=== PATIENT | female | born 2000 | race Caucasian/White ===

== ENCOUNTER 2020-03-19 09:58 | Inpatient (IN) | payer BC, MEDICAID ==
[2020-03-20] MEDS ORDERED: ZOLPIDEM TARTRATE 5 MG TABLET PO PRN (17:51)
[2020-03-20] MEDS ORDERED: RINGERS SOLUTION,LACTATED 1,000 ML IV ONE (17:51)
[2020-03-20] MEDS ORDERED: MAG HYDROX/AL HYDROX/SIMETH SUSP 30 ML UDCUP PO PRN (17:51)
[2020-03-20] MEDS ORDERED: ACETAMINOPHEN 325 MG TABLET PO PRN (17:51)
[2020-03-20] MEDS ORDERED: RINGERS SOLUTION,LACTATED 1,000 ML IV PRN (17:51)
[2020-03-20] MEDS ORDERED: DINOPROSTONE 10 MG VAGINAL INSERT.SR PV ONE (17:51)
[2020-03-20] MEDS ORDERED: DINOPROSTONE 10 MG VAGINAL INSERT.SR ONE (18:06)
[2020-03-20 18:30] LABS: APPEARANCE,URINE SLIGHTLY-CLOUDY; BILIRUBIN,URINE NEGATIVE (NEGATIVE); COLOR,URINE YELLOW; GLUCOSE, URINE NEGATIVE (NEGATIVE); KETONES,URINE NEGATIVE (NEGATIVE); LEUKOCYTE ESTERASE,URINE LARGE (NEGATIVE); NITRITE,URINE NEGATIVE (NEGATIVE); PROTEIN,URINE NEGATIVE (NEGATIVE); URINE SPECIFIC GRAVITY 1.008; UROBILINOGEN,URINE NEGATIVE mg/dL (<2.0)
[2020-03-20 18:47] LABS: URINE AMPHETAMINES SCREEN NEGATIVE; URINE BARBITURATES SCREEN NEGATIVE; URINE BENZODIAZEPINES SCREEN NEGATIVE; URINE COCAINE SCREEN NEGATIVE; URINE MARIJUANA (THC) SCREEN NEGATIVE; URINE METHADONE SCREEN NEGATIVE; URINE PHENCYCLIDINE SCREEN NEGATIVE
[2020-03-20 19:06] LABS: ABSOLUTE EOSINOPHILS # (AUTO) 0.1 10^3/uL (0.0-0.6); ABSOLUTE MONOCYTES (AUTO) 0.9 10^3/uL (0.1-1.4); ABSOLUTE NEUT (AUTO) 7.8 10^3/uL (1.7-8.2); BASOPHILS % (AUTO) 0.4 % (0-2); EOSINOPHILS % (AUTO) 1.1 % (0-6); HEMATOCRIT 32.7 % (36.0-47.0); HEMOGLOBIN 11.5 g/dL (12.0-15.5); LYMPHOCYTES % (AUTO) 18.1 % (13-45); MEAN CORPUSCULAR HEMOGLOBIN 29.6 pg (27.0-33.4); MEAN CORPUSCULAR HGB CONC 35.1 g/dL (32.0-36.0); MEAN CORPUSCULAR VOLUME 84 fl (80-97); MONOCYTES % (AUTO) 8.4 % (3-13); PLATELET COUNT 216 10^3/uL (150-450); RED BLOOD COUNT 3.87 10^6/uL (3.72-5.28); RED CELL DISTRIBUTION WIDTH 14.4 % (11.5-14.0); TOTAL CELLS COUNTED % (AUTO) 100 %; WHITE BLOOD COUNT 10.8 10^3/uL (4.0-10.5)
[2020-03-20] MEDS ORDERED: ZOLPIDEM TARTRATE 5 MG TABLET ONE (20:52)
[2020-03-21] MEDS ORDERED: NALBUPHINE HCL INJ 10 MG/1 ML AMPULE ONE (00:22)
[2020-03-21] MEDS ORDERED: PROMETHAZINE HCL INJ 25 MG/1 ML VIAL ONE (00:22)
[2020-03-21] MEDS ORDERED: PROMETHAZINE HCL INJ 25 MG/1 ML VIAL IV ONE (01:00)
[2020-03-21] MEDS ORDERED: NALBUPHINE HCL INJ 10 MG/1 ML AMPULE INJ ONE (01:00)
[2020-03-21] MEDS ORDERED: OXYTOCIN/0.9 % SODIUM CHLORIDE 30 UNIT/500 ML RTUINJ IV PRN ×2 (07:00→18:53)
--- NOTE | 2020-03-21 07:13 | Admission Physical ---
Datetime Report Generated by CPN: 03/21/2020 07:13 CURRENT ADMISSION Chief Complaint: Scheduled Induction of Labor Indication for Induction: Postterm Admit Impression : Postterm, Intrauterine ; No Active Labor; Induction of Labor Admit Plan: Admit to Unit; Initiate Labor Induction Protocol ALLERGIES Medication Allergies: No Medication Allergies: No Known Drug Allergies (03/20/2020) Latex: No Latex Allergies OBSTETRICAL HISTORY EDC: 03/13/2020 00:00 : 1 Para: 0 Term: 0 : 0 SAB: 0 IAB: 0 Ectopic: 0 Livin Cesareans: 0 VBACs: 0 Multiple Births: 0 Gestational Diabetes: No Rh Sensitization: No Incompetent Cervix: No SHREE: No Infertility: No ART Treatment: No Uterine Anomaly: No IUGR: No Hx Previous C/S: No Macrosomia: No Hx Loss/Stillborn: No PIH: No Hx : No Placenta Previa/Abruption: No Depression/PP Depression: No PTL/PROM: No Post Hemorrhage: No Obstetrical History Comments: G1-current SEE RECORDS Alcohol: No Marijuana : No Cocaine: No Other Illicit Drugs: No Cigarettes: Never Smoker. [id number] MEDICAL HISTORY Diabetes: No Blood Transfusion: No Pulmonary Disease (Asthma, TB): No Breast Disease: No Hypertension: No [employer] Surgery: No Heart Disease: No Hosp/Surgery: Yes Autoimmune Disorder: No Anesthetic Complications: No Kidney Disease: No Abnormal Pap Smear: No Neuro/Epilepsy: No Psychiatric Disorders: No Other Medical Diseases: No Hepatitis/Liver Disease: No Significant Family History: No Varicosities/Phlebitis: No Trauma/Violence : No Thyroid Dysfunction: No Medical History Comments: [place] teeth removed 2017 INFECTIOUS HISTORY Gonorrhea: No Genital Herpes: No Chlamydia: No Tuberculosis: No Syphilis: No Hepatitis: No HIV/AIDS Exposure: No Rash or Viral Illness: No HPV: No PHYSICAL EXAM General: Normal HEENT: Normal Neurologic: Normal Thyroid: Normal Heart: Normal Lungs: Normal Breast: Normal Back: Normal Abdomen: Normal Genitourinary Exam: Normal Extremities: Normal DTRs: Normal Pelvic Type: Adequate Vital Signs: Reviewed VAGINAL EXAM Dilatation: 2 Effacement: 60 Station: -2 MEMBRANES Pooling: Negative Membranes: Intact FETUS A EGA: 41.1 Monitoring: External US FHR- Baseline: 150 Variability: Moderate 6-25bpm Accelerations: 15X15 Decelerations: None FHR Category: Category I Estimated Weight (gm): 3800 Presentation: Vertex Admit Comment: cervidil removed at 3:30 am after 7 hours in due to tachystystole. Pitocin starting after shower and breakfast PLANS FOR LABOR AND DELIVERY Labor and Delivery: None Pain Management: Natural Feeding Preference: Breast Benefit of Breast Feed Discussed: Yes Circumcision: N/A INFORMED CONSENT Signature: with User ID: [email or web address]
[2020-03-21] MEDS ORDERED: OXYTOCIN 10 UNIT/ML VIAL ONE (08:18)
[2020-03-21] MEDS ORDERED: OXYTOCIN/0.9 % SODIUM CHLORIDE 30 UNIT/500 ML RTUINJ ONE (08:19)
[2020-03-21] MEDS ORDERED: MISOPROSTOL 0.2 MG TABLET ONE (08:19)
--- NOTE | 2020-03-21 12:33 | L&D Progress Notes ---
PROGRESS NOTES Datetime Report Generated by CPN: 03/21/2020 12:33 PROGRESS NOTE Impression Other: IUP @ [id number] Procedures: Artificial ROM; Sterile Vag Exam Plan: Continue Present Management; Induction Informed Consent Obtained: Vaginal Delivery; Induction of Labor; Risks, Benefits and Alternatives Discussed Vital Signs : Reviewed; Within Normal Limits Comment: S: comfortable, breathing with contractions, desires epidural at some time for pain control, agreeable to AROM O: vss, cat I tracing, pit @ 6mu/min, cervix as stated, contractions q1.5-5min A: IUP @ 41w1d- IOL-stable AROM-clear fluid, pt tolerated procedure well P: continue IOL, epidural prn, anticipate delivery VAGINAL EXAM Dilatation: 2 Effacement: 60 Station: -2 Contractions: 1.5-5 LAST VAGINAL EXAM-NURSING Nursing Exam Dilitation: 4.5 Nursing Exam Effacement: 90 Nursing Exam Station: -1 Nursing Exam Contractions: unable to determine, RN at bedside MEMBRANES Pooling: Negative Membranes: Ruptured Amniotic Fluid Color: Clear FETUS A Monitoring: External US FHR Category: Category I : 41.1 Estimated Weight (gm): 3800 Presentation: Vertex SIGNATURE SIGNATURE: [id number] Assignment: Jasmyne Hernandez MD Signature: with User ID: La : with User ID: La
[2020-03-21] MEDS ORDERED: EPHEDRINE SULFATE INJ 50 MG/1 ML AMPULE ONE (13:33)
[2020-03-21] MEDS ORDERED: FENTANYL/BUPIVACAINE/NS/PF 300 MCG/150 ML RTUINJ EPI ONE (13:34)
[2020-03-21] MEDS ORDERED: ROPIVACAINE HCL 0.2% INJ/PF (2 MG/ML) 20 ML SDV ONE (13:34)
--- NOTE | 2020-03-21 17:07 | L&D Progress Notes ---
PROGRESS NOTES Datetime Report Generated by CPN: 03/21/2020 17:06 PROGRESS NOTE Impression: Normal Progression of Labor Impression Other: IUP @ 72v1w-TEG Procedures: Sterile Vag Exam Plan: Continue Present Management; Induction Informed Consent Obtained: Vaginal Delivery; Induction of Labor; Risks, Benefits and Alternatives Discussed Vital Signs : Reviewed; Within Normal Limits Comment: S: reports intermittent perineal pressure, feels like pushing at this time O: VSS, cervix as stated, pit @ 18mu/min, contractions 1.5-4min A: IUP @ 41w1d- IOL for postdates-stable progressing well P: will sit in throne position, reassess in 30min, anticipate delivery VAGINAL EXAM Dilatation: 2 Effacement: 60 Station: -2 Contractions: 1.5-5 LAST VAGINAL EXAM-NURSING Nursing Exam Dilitation: 9.5 Nursing Exam Effacement: 100 Nursing Exam Station: 0 Nursing Exam Contractions: unable to determine, RN at bedside MEMBRANES Pooling: Negative Membranes: Ruptured Amniotic Fluid Color: Clear FETUS A Monitoring: External US Variability: Moderate 6-25bpm Accelerations: 15X15 Decelerations: Early; Variable FHR Category: Category II : 41.1 Estimated Weight (gm): 3800 Presentation: Vertex SIGNATURE SIGNATURE: [id number] Assignment: Jasmyne Hernandez MD Signature: with User ID: La : with User ID: La
--- NOTE | 2020-03-21 18:22 | L&D Progress Notes ---
PROGRESS NOTES Datetime Report Generated by CPN: 03/21/2020 18:21 PROGRESS NOTE Impression: Normal Progression of Labor Impression Other: IUP @ 83q9u-DLF Procedures: Sterile Vag Exam Plan: Continue Present Management; Induction Informed Consent Obtained: Vaginal Delivery; Induction of Labor; Risks, Benefits and Alternatives Discussed Vital Signs : Reviewed; Within Normal Limits Comment: The patient is complete and starting to crown. The heart rate is low at time but does return to the 120s. We attempted a vacuum delivery however the vacuum will not maintain a seal and is unsuccessful. We may need to consider a c section if she is unable to push the baby out. VAGINAL EXAM Dilatation: 2 Effacement: 60 Station: -2 Contractions: 1.5-5 LAST VAGINAL EXAM-NURSING Nursing Exam Dilitation: 9.5 Nursing Exam Effacement: 100 Nursing Exam Station: 0 Nursing Exam Contractions: unable to determine, RN at bedside MEMBRANES Pooling: Negative Membranes: Ruptured Amniotic Fluid Color: Clear FETUS A Monitoring: External US Variability: Moderate 6-25bpm Accelerations: 15X15 Decelerations: Early; Variable FHR Category: Category II : 41.1 Estimated Weight (gm): 3800 Presentation: Vertex SIGNATURE SIGNATURE: [id number] Assignment: Jasmyne Hernandez MD Signature: with User ID: [email or web address] : with User ID: Huang
[2020-03-21] MEDS ORDERED: NA PHOS,M-B/NA PHOS,DI-BA (ADULT) 133 ML ENEMA PR PRN (18:53)
[2020-03-21] MEDS ORDERED: PROMETHAZINE HCL INJ 25 MG/1 ML VIAL IV PRN (18:53)
[2020-03-21] MEDS ORDERED: PROMETHAZINE HCL 25 MG TABLET PO PRN (18:53)
[2020-03-21] MEDS ORDERED: DIPH/PERTUSS(ACELL)/TETANUS VAC/PF 0.5 ML SYR (>=10YO) IM PRN (18:53)
[2020-03-21] MEDS ORDERED: MAGNESIUM HYDROXIDE SUSP 30 ML UDCUP PO PRN (18:53)
[2020-03-21] MEDS ORDERED: ACETAMINOPHEN 325 MG TABLET PO PRN (18:53)
[2020-03-21] MEDS ORDERED: PROMETHAZINE HCL 25 MG SUPP.RECT PR PRN (18:53)
[2020-03-21] MEDS ORDERED: GLYCERIN/WITCH HAZEL LEAF 1 EACH MED..WIPE TP PRN (18:53)
[2020-03-21] MEDS ORDERED: MEASLES,MUMPS&RUBELLA VACC/PF 0.5 ML VIAL SUBCUT PRN (18:53)
[2020-03-21] MEDS ORDERED: DIPHENHYDRAMINE HCL 25 MG CAPSULE PO PRN (18:53)
[2020-03-21] MEDS ORDERED: DIBUCAINE 1% OINTMENT 28 GM TP PRN (18:53)
[2020-03-21] MEDS ORDERED: BENZOCAINE/MENTHOL AEROSOL SPRAY 56 ML TOP PRN (18:53)
[2020-03-21] MEDS ORDERED: PSEUDOEPHEDRINE HCL 30 MG TABLET PO PRN (18:53)
--- NOTE | 2020-03-21 21:21 | Birth Certificate Data ---
Cert Data Datetime Report Generated by CPTimi: 03/21/2020 21:21 CERTIFICATE DATA Delivery Provider: Jasmyne Hernandez MD (03/20/2020 17:25:Marcia Rogers RN) 47a. Care: Yes (03/20/2020 17:25:Rachana Meyers RN) 47b. Date of First Visit: 10/04/2019 00:00 (03/20/2020 17:25:Brenna Montero RN) 47c. Date of Last Visit: 03/14/2020 00:00 (03/20/2020 17:25:Brenna Montero RN) 47d. Number of Visits: 9 (03/20/2020 17:25:Brenna Montero RN) 48a. Number of Prev Live Births: 0 (03/20/2020 17:25:Rachana Meyers RN) 48b. Now Livin (03/20/2020 17:25:Rachana Meyers RN) 48c. Live Births Now : 0 (03/20/2020 17:25:QS system process) 48e. Losses: 0 (03/20/2020 17:25:Rachana Sales, RN) RISK FACTORS IN THIS 49a. Diabetes: No (03/20/2020 17:25:Rachana Meyers RN) 49b. Hypertension: No (03/20/2020 17:25:Rachana Meyers RN) 49c. Previous Births: 0 (03/20/2020 17:25:Rachana Meyers RN) 49d. Stillborns: No (03/20/2020 17:25:Rachana Meyers RN) 49d. IUGR: No (03/20/2020 17:25:Rachana Meyers RN) 49e. Infertility Treatment: No (03/20/2020 17:25:Rachana Meyers RN) 49f. Previous Cesareans: 0 (03/20/2020 17:25:Rachana Meyers RN) Mother's Height 50b. Height Inches: 63 (03/21/2020 09:22:QS system process) Mother's Weight 51a. Pre- Weight (lbs): 118 (03/20/2020 17:25:Brenna Montero RN) 51b. Weight at Delivery (lbs): 145 (03/21/2020 09:22:QS system process) 52. Dt Last Normal Menses Began: 05/29/2019 00:00 (03/20/2020 17:25:Rachana Meyers RN) Infections Present/Treated 53a. Gonorrhea: No (03/20/2020 17:25:Rachana Meyers RN) Results this Hospital Visit : Negative (03/20/2020 17:25:Rachana Meyers RN) 53b. Syphilis: No (03/20/2020 17:25:Rachana Meyers RN) Results this Hospital Visit: NONREACTIVE (03/20/2020 18:46:QS system process) 53c. Chlamydia: No (03/20/2020 17:25:Rachana Meyers RN) Results this Hospital Visit: Negative (03/20/2020 17:25:Rachana Meyers RN) 53d. Hepatitis B: No (03/20/2020 17:25:Rachana Meyers RN) Results this Hospital Visit: Negative (03/20/2020 17:25:Rachana Meyers RN) 53e. Hepatitis C: Negative (03/20/2020 17:25:Rachana Meyers RN) 53h. Mother Tested for HBsAG: Yes (03/20/2020 17:25:Rachana Meyers RN) 53i. Date Tested: 10/04/2019 00:00 (03/20/2020 17:25:Rachana Meyers RN) 53j. Test Result: Negative (03/20/2020 17:25:Rachana Meyers RN) Obstetric Procedures 54a, b, c. Obstetric Procedures: Ultrasound (03/20/2020 17:25:Hailey Mehta RN) Cigarette Smoking Cigarette Smoking: Never Smoker. [id number] (03/20/2020 17:25:Rachana Meyers RN) 55a. 3 Months Before Preg - Ci (03/20/2020 17:25:Brenna Montero RN) 55a. Packs: 0 (03/20/2020 17:25:Brenna Montero RN) 55b. 1st Trimester of Preg- Ci (03/20/2020 17:25:Brenna Montero RN) 55b. Packs: 0 (03/20/2020 17:25:Brenna Montero RN) 55c. 2nd Trimester of Preg- Ci (03/20/2020 17:25:Brenna Montero RN) 55c. Packs: 0 (03/20/2020 17:25:Brenna Montero RN) 55d. 3rd Trimester of Preg- Ci (03/20/2020 17:25:Brenna Montero RN) 55d. Packs: 0 (03/20/2020 17:25:Brenna Montero RN) Onset of Labor 56a. PROM >12 Hrs: 6.75 (03/20/2020 17:25:QS system process) 56b. Precipitous Labor <3 Hrs: 16 (03/20/2020 17:25:QS system process) 56c. Prolonged Labor > 20 Hrs: 16 (03/20/2020 17:25:QS system process) 57a. Induction of Labor: Induction (03/20/2020 17:25:Hailey Mehta RN) 57a. Induction of Labor: Cervidil (03/20/2020 18:27:Rachana Meyers RN) 57c. Non-Vertex Presentation A: Vertex (03/20/2020 17:25:Marcia Rogers RN) 57d. Steroids - Lung Mat: None (03/20/2020 17:25:Hailey Mehta RN) 57d. Steroids - Lung Mat: Not Applicable (03/20/2020 17:25:Hailey Mehta RN) 57f. Mat [place] or Temp >100.4: 99.4 (03/20/2020 17:25:Petra Ascencio RN) 57g. Moderate/Heavy Meconium: Clear (03/21/2020 12:06:Hailey Mehta RN) 57h. Intolerance of Labor: N/A (03/20/2020 17:25:Marcia Rogers RN) : N/A (03/20/2020 17:25:Marcia Rogers RN) 57i. Epidural/Spinal Anesthesia: Epidural (03/20/2020 17:25:Jasmyne Hernandez MD ([facility])) Method of Delivery 58a. Forceps - Unsuccessful A: N/A (03/20/2020 17:25:Marcia Rogers RN) 58b. Vacuum - Unsuccessful A: Failed (03/20/2020 17:25:Marcia Rogers RN) 58c. Presentation at 58c. Presentation at - A : Vertex (03/20/2020 17:25:Marcia Rogers RN) 58c. Presentation at - A : N/A (03/20/2020 17:25:Marcia Rogers RN) 58c. Presentation at - A : Cephalic (03/21/2020 00:15:Brenna Montero RN) Final Route and Method of Del 58d. Baby A Route/Delivery: Vaginal (03/21/2020 18:51:Marcia Rogers RN) 58e. Trial of Labor Attempted: No (03/20/2020 17:25:Hailey Mehta RN) 58e. Trial of Labor Attempted A: N/A (03/20/2020 17:25:Marcia Rogers RN) 58e. Trial of Labor Attempted B: N/A (03/20/2020 17:25:Hailey Mehta RN) Maternal Morbidity 59b. 3rd or 4th Degree Lacs: None (03/20/2020 17:25:Jasmyne Hernandez MD ([facility])) Birthweight Baby A: 3627 (03/20/2020 17:25:Petra Ascencio RN) 60a. Pounds : 8 (03/20/2020 17:25:QS system process) 60b. Ounces: 0 (03/20/2020 17:25:QS system process) 61. GA at Delivery Baby A: 41.1 (03/20/2020 17:25:Marcia Rogers RN) : Late Term- 41- 41.6 Weeks (03/20/2020 17:25:QS system process) 62a. 5 Minute Baby A: 9 (03/20/2020 17:25:QS system process)
--- NOTE | 2020-03-21 21:21 | Delivery Summary ---
Del Sum A-C Datetime Report Generated by CPN: 03/21/2020 21:21 DELIVERY PERSONNEL DELIVERY PERSONNEL: [id number] Delivery Doctor:: Jasmyne Hernandez MD FITNESS ATTENDANT:: Ulysses Eller CRNA Labor and Delivery Nurse:: Hailey Mehta RNtransportation aide Nurse:: Marcia Rogers RN Nursery Nurse:: Yesica Malik RN Nursery Nurse:: Batool Gomes RN Personal Injury Litigation Paralegal/AIRLINE PILOT: Stephania Mcgrath, CHILDREN'S LITERATURE PROFESSOR MATERNAL INFORMATION Delivery Anesthesia: Epidural Medications After Delivery: Pitocin 30 Units in 500ml NS/D5W Estimated Blood Loss (ml): 200 Delivery QBL: 200 Maternal Complications: None LABOR SUMMARY EDC: 03/13/2020 00:00 No. Babies in Womb: 1 Attempted: No Labor Anesthesia: Epidural LABOR INFORMATION Reason for Induction: Post Dates Onset of Labor: 03/21/2020 03:00 Complete Dilatation: 03/21/2020 17:10 Cervical Ripening Agents: Cervidil Oxytocin: Induction Group B Beta Strep: Negative Antibiotics # of Doses: 0 Name of Antibiotic Given: N/A Steroids Given: None Reason Steroids Not Administered: Not Applicable MEMBRANES Membranes Rupture Method: Artificial Rupture of Membranes: 03/21/2020 12:06 Length of Rupture (hr): 6.75 Amniotic Fluid Color: Clear Amniotic Fluid Amount: Moderate Amniotic Fluid Odor: Normal STAGES OF LABOR Stage 1 hr: 14 Stage 1 min: 10 Stage 2 hr: 1 Stage 2 min: 41 Stage 3 hr: 0 Stage 3 min: 21 Total Time in Labor hr: 16 Total Time in Labor min: 12 VAGINAL DELIVERY Episiotomy: Median Laceration #1: None Laceration Extension #1: N/A Laceration #2: None Laceration Extension #2: N/A Laceration #3: None Laceration Extension #3: N/A Laceration Repair: Not Applicable Laceration Repair Note: Midline episiotomy with no extension repaired with 3-0 chromic suture in usual fasion. Episiotomy cut to fascilitate delivery of the baby because of bradycardia. Sponge Count Correct: Yes Sharps Count Correct: Yes CSECTION DELIVERY Primary Indication: N/A Secondary Indication: N/A CSection Incidence: N/A Labor: N/A Elective: N/A CSection Incision: N/A BABY A INFORMATION Infant Delivery Date/Time: 03/21/2020 18:51 Method of Delivery: Vaginal Nurse Controlled Delivery: No Born in Route : No : N/A Forceps: N/A Vacuum Extraction: Failed Shoulder Dystocia : No ASSISTED DELIVERY BABY A Indication for Assisted Delivery: bradycardia Catheter Prior to Procedure: No Station Vacuum/Forcep Apply: Position Vacuum/Forcep Apply: SONNY Vacuum Number of Pulls: 4 Vacuum Number of PopOffs: 1 Vacuum Maximum Pressure Obtained: pressure in the green Reduce Pressure btwn Ctx: yes Vacuum Database Management Specialist: kiwi Vacuum/Forceps Comment: The vacuum would not maintain good suction to the head and was unsucessful. PRESENTATION/POSITION BABY A Presentation: Cephalic Cephalic Presentation: Vertex Vertex Position: Right Occipital Anterior Breech Presentation: N/A PLACENTA INFORMATION BABY A Placenta Delivery Time : 03/21/2020 19:12 Placenta Method of Delivery: Manual Removal Placenta Status: Delivered SCORES BABY A Heart Rate 1 min: >100 bpm Resp Effort 1 min: Good Cry Reflex Irritability 1 min: Cough or Sneeze or Pulls Away Muscle Tone 1 min: Active Motion Color 1 min: Blue/Pale Resuscitation Effort 1 min: Tactile Stimulation SCORE 1 MIN: 8 Heart Rate 5 min: >100 bpm Resp Effort 5 min: Good Cry Reflex Irritability 5 min: Cough or Sneeze or Pulls Away Muscle Tone 5 min: Active Motion Color 5 min: Body Pinhook, Extremities Blue Resuscitation Effort 5 min: Tactile Stimulation SCORE 5 MIN: 9 INFANT INFORMATION BABY A Gestational Age at Delivery: 41.1 Gestational Status: Late Term- 41- 41.6 Weeks Outcome : Liveborn Condition : Stable Infant Sex: Female IDENTIFICATION BABY A Verification Date/Time: 03/21/2020 19:25 ID Band Number: [id number] Mother's Name Verified: Yes RN Verifying Infant: Brook White RN Additional Verifying Personnel: Jesse Rogers RN WEIGHT/LENGTH BABY A Birthweight (gm): 3627 Weight (lb): 8 Weight (oz): 0 Infant Length (in): 21.25 Infant Length (cm): 53.98 CORD INFORMATION BABY A No. Cord Vessels: 3 Nuchal Cord : Around Neck x1, Loose Cord Blood Taken: Yes-For Storage (Mom's Blood type +) Suction: Mouth; Nose ASSESSMENT BABY A Complications: Extended Bradycardia; Multiple Late Decels; Multiple Variable Decels Skin to Skin: No BABY B INFORMATION : N/A SIGNATURES Assignment: Jasmyne Hernandez MD Signature: with User ID: Huang : with User ID: Huang
[2020-03-21] MEDS: FAMOTIDINE 20 MG TABLET PO SCH (23:29)
[2020-03-21] MEDS: IBUPROFEN 800 MG TABLET PO SCH (23:29)
[2020-03-22] MEDS: IBUPROFEN 800 MG TABLET PO SCH ×3 (03:12→19:37)
[2020-03-22 08:17] LABS: HEMATOCRIT 32.2 % (36.0-47.0); MEAN CORPUSCULAR HEMOGLOBIN 29.3 pg (27.0-33.4); MEAN CORPUSCULAR HGB CONC 34.3 g/dL (32.0-36.0); MEAN CORPUSCULAR VOLUME 85 fl (80-97); PLATELET COUNT 182 10^3/uL (150-450); RED BLOOD COUNT 3.77 10^6/uL (3.72-5.28); RED CELL DISTRIBUTION WIDTH 14.2 % (11.5-14.0); WHITE BLOOD COUNT 16.3 10^3/uL (4.0-10.5)
--- NOTE | 2020-03-22 10:26 | PDOC PROGRESS REPORT ---
Subjective-OB Progress Note for:: 03/22/20 Subjective: Pt is doing well, no concerns. She is in NICU feeding baby (has spont pneumothorax), reports light bleeding, reg diet and voiding w/o difficulty. Plan to discharge to [facility] tomorrow. Physical Exam (OB) Vital Signs: Temp Pulse Resp BP Pulse Ox 97.7 F 83 14 113/59 L 96 03/22/20 08:08 03/22/20 08:08 03/22/20 08:08 03/22/20 08:08 03/22/20 08:08 Intake & Output 03/21/20 03/22/20 03/23/20 06:59 06:59 06:59 Weight 66.3 kg - Maternal Morbidity 59. Maternal Morbidity (serious complications experinced by the mother associated with labor and delivery: None of the above - Abdomen Hernia Present: No Abdomen Note: uanble to examine, normal per nursing Objective-Diagnostic Laboratory: 03/22/20 07:50 03/22/20 07:50 WBC 16.3 H RBC 3.77 Hgb 11.0 L Hct 32.2 L MCV 85 MCH 29.3 MCHC 34.3 RDW 14.2 H Plt Count 182 Assessment and Plan(PN) - Assessment and Plan (1) Delivery normal Is this a current diagnosis for this admission?: Yes (2) Encounter for induction of labor Is this a current diagnosis for this admission?: Yes (3) Gestational diabetes mellitus (GDM) affecting Is this a current diagnosis for this admission?: Yes - Time Spent with Patient Time with patient: Less than 15 minutes Medications reviewed and adjusted accordingly: Yes - Disposition Anticipated Discharge Disposition: Home, Self Care Anticipated Discharge Timeframe: within 24 hours
[2020-03-22] MEDS: FAMOTIDINE 20 MG TABLET PO SCH (14:48)
[2020-03-22] MEDS: FERROUS SULFATE 325 MG TABLET PO SCH ×2 (14:48→19:37)
[2020-03-22] MEDS: DOCUSATE SODIUM 100 MG CAPSULE PO SCH ×2 (14:48→19:37)
[2020-03-22] MEDS: SENNOSIDES/DOCUSATE 8.6-50 MG 1 EACH TABLET PO SCH (14:49)
[2020-03-22] MEDS: PRENATAL VITAMIN W DHA CAPSULE PO SCH (14:49)
[2020-03-23] MEDS: FAMOTIDINE 20 MG TABLET PO SCH ×2 (00:08→09:46)
[2020-03-23] MEDS: IBUPROFEN 800 MG TABLET PO SCH ×2 (02:20→09:56)
[2020-03-23 08:48] VITALS: BP 117/61
[2020-03-23] MEDS: PRENATAL VITAMIN W DHA CAPSULE PO SCH (09:46)
[2020-03-23] MEDS: DOCUSATE SODIUM 100 MG CAPSULE PO SCH (09:46)
[2020-03-23] MEDS: FERROUS SULFATE 325 MG TABLET PO SCH (09:46)
[2020-03-23] MEDS: SENNOSIDES/DOCUSATE 8.6-50 MG 1 EACH TABLET PO SCH (09:46)
--- NOTE | 2020-03-23 11:38 | PDOC DISCHARGE SUMMARY ---
Impression - Admit/DC Date/PCP Admission Date/Primary Care Provider: 03/20/20 17:41 LENA PATEL MD Discharge Date: 03/23/20 - Discharge Diagnosis (1) Delivery normal Is this a current diagnosis for this admission?: Yes (2) Encounter for induction of labor Is this a current diagnosis for this admission?: Yes (3) Gestational diabetes mellitus (GDM) affecting Is this a current diagnosis for this admission?: Yes - Additional Information Resuscitation Status: Full Code Discharge Diet: Regular Discharge Activity: Balance Activity w/Rest, Pelvic Rest Referrals: LENA PATEL MD [Primary Care Provider] - Prescriptions: Ibuprofen [Motrin 800 mg Tablet] 800 mg PO Q8HP PRN #60 tablet PRN Reason: Home Medications: Docusate Sodium [Colace 100 mg Capsule] 1 tab PO DAILY 03/20/20 Vit,Calc76/Iron/Folic [Prenatabs Rx Tablet] 1 tab PO DAILY 03/20/20 Ibuprofen [Motrin 800 mg Tablet] 800 mg PO Q8HP PRN #60 tablet 03/23/20 HPI Gestational Age: 41.1 Reason(s) for Admission: Induction of Labor Procedures: NST Intrapartum Procedure(s): Spontaneous Vaginal Delivery, Episiotomy Hospital Course 59. Maternal Morbidity (serious complications experinced by the mother associated with labor and delivery: None of the above Results Laboratory Results: WBC 16.3 10^3/uL (4.0-10.5) H 03/22/20 07:50 RBC 3.77 10^6/uL (3.72-5.28) 03/22/20 07:50 Hgb 11.0 g/dL (12.0-15.5) L 03/22/20 07:50 Hct 32.2 % (36.0-47.0) L 03/22/20 07:50 MCV 85 fl (80-97) 03/22/20 07:50 MCH 29.3 pg (27.0-33.4) 03/22/20 07:50 MCHC 34.3 g/dL (32.0-36.0) 03/22/20 07:50 RDW 14.2 % (11.5-14.0) H 03/22/20 07:50 Plt Count 182 10^3/uL (150-450) 03/22/20 07:50 Lymph % (Auto) 18.1 % (13-45) 03/20/20 18:46 [place] % (Auto) 8.4 % (3-13) 03/20/20 18:46 Eos % (Auto) 1.1 % (0-6) 03/20/20 18:46 Baso % (Auto) 0.4 % (0-2) 03/20/20 18:46 Absolute Neuts (auto) 7.8 10^3/uL (1.7-8.2) 03/20/20 18:46 Absolute Lymphs (auto) 2.0 10^3/uL (0.5-4.7) 03/20/20 18:46 Absolute Monos (auto) 0.9 10^3/uL (0.1-1.4) 03/20/20 18:46 Absolute Eos (auto) 0.1 10^3/uL (0.0-0.6) 03/20/20 18:46 Absolute Basos (auto) 0.0 10^3/uL (0.0-0.2) 03/20/20 18:46 Seg Neutrophils % 72.0 % (42-78) 03/20/20 18:46 Urine Color YELLOW 03/20/20 17:49 Urine Appearance SLIGHTLY-CLOUDY 03/20/20 17:49 Urine pH 6.0 (5.0-9.0) 03/20/20 17:49 Ur Specific [place] 1.008 03/20/20 17:49 Urine Protein NEGATIVE mg/dL (NEGATIVE) 03/20/20 17:49 Urine Glucose (UA) NEGATIVE mg/dL (NEGATIVE) 03/20/20 17:49 Urine Ketones NEGATIVE mg/dL (NEGATIVE) 03/20/20 17:49 Urine Blood NEGATIVE (NEGATIVE) 03/20/20 17:49 Urine Nitrite NEGATIVE (NEGATIVE) 03/20/20 17:49 Urine Bilirubin NEGATIVE (NEGATIVE) 03/20/20 17:49 Urine Urobilinogen NEGATIVE mg/dL (<2.0) 03/20/20 17:49 Ur Leukocyte Esterase LARGE (NEGATIVE) H 03/20/20 17:49 Urine Ascorbic Acid NEGATIVE (NEGATIVE) 03/20/20 17:49 Urine Opiates Screen NEGATIVE 03/20/20 17:49 Urine Methadone Screen NEGATIVE 03/20/20 17:49 Ur Barbiturates Screen NEGATIVE 03/20/20 17:49 Ur Phencyclidine Scrn NEGATIVE 03/20/20 17:49 Ur Amphetamines Screen NEGATIVE 03/20/20 17:49 U Benzodiazepines Scrn NEGATIVE 03/20/20 17:49 Urine Cocaine Screen NEGATIVE 03/20/20 17:49 U Marijuana (THC) Screen NEGATIVE 03/20/20 17:49 RPR NONREACTIVE (NONREACTIVE) 03/20/20 18:46 Blood Type A POSITIVE 03/20/20 18:46 Antibody Screen NEGATIVE 03/20/20 18:46 Plan Plan of Treatment: f/u at [facility] Time Spent: Less than 30 Minutes
== END 2020-03-23 15:28 | disposition home or self-care (01) | DRG 807 ==
LOC: LR 03-20 17:41 → 2S 03-21 23:24
PROVIDERS: ADMIT Obstetrics & Gynecology; ATTEND Obstetrics & Gynecology
PROC: 10D07Z6 Extraction of Products of Conception, Vacuum, Via Natural or Artificial Opening (ICD-10-PCS; principal; 2020-03-21)
PROC: 3E033VJ Introduction of Other Hormone into Peripheral Vein, Percutaneous Approach (ICD-10-PCS; 2020-03-21)
PROC: 10907ZC Drainage of Amniotic Fluid, Therapeutic from Products of Conception, Via Natural or Artificial Opening (ICD-10-PCS; 2020-03-21)
PROC: 3E0P7VZ Introduction of Hormone into Female Reproductive, Via Natural or Artificial Opening (ICD-10-PCS; 2020-03-21)
DX: O48.0 Post-term pregnancy (principal); Z37.0 Single live birth; O24.429 Gestational diabetes mellitus in childbirth, unspecified control; Z3A.41 41 weeks gestation of pregnancy; O76 Abnormality in fetal heart rate and rhythm complicating labor and delivery; O69.81X0 Labor and delivery complicated by cord around neck, without compression, not applicable or unspecified
CPT/HCPCS: 1967; 36415; 80307; 81005; 85025; 85027; 86592; 86850; 86900; 86901; J2300; J2550; J2590; J2795; J3010; J3490